=== PATIENT | female | born 1945 | race Caucasian/White ===

== ENCOUNTER → 2017-04-06 | Outpatient (CLI) | payer MEDICARE, BC | LOC: MC.RAD 15:12 | DX: Z12.31 Encounter for screening mammogram for malignant neoplasm of breast (principal) ==

== ENCOUNTER → 2018-04-28 | Outpatient (CLI) | payer MEDICARE, BC | LOC: MC.RAD 08:36 | DX: Z12.31 Encounter for screening mammogram for malignant neoplasm of breast (principal) ==

== ENCOUNTER → 2019-04-30 | Outpatient (CLI) | payer MEDICARE, BC | LOC: MC.RAD 09:59 | DX: Z12.31 Encounter for screening mammogram for malignant neoplasm of breast (principal) ==

== ENCOUNTER 2020-10-09 12:08 | Emergency (ER) | payer MEDICARE, BC ==
[~2020-10-09] VITALS: Ht 157.5 cm; Wt 64.5 kg
[2020-10-09 12:18] VITALS: TEMP 98.3
[2020-10-09] MEDS ORDERED: TYLENOL 500MG500 MG PO (12:57)
[2020-10-09] MEDS ORDERED: CALCIUM 600 MG1 EAC2 PO (12:58)
[2020-10-09] MEDS ORDERED: NORVASC2.5 MG PO (12:58)
[2020-10-09] MEDS ORDERED: VITAMIN D31000 I1 PO (12:59)
[2020-10-09] MEDS ORDERED: FLAXSEED OIL1000 MG PO (12:59)
[2020-10-09] MEDS ORDERED: ZYRTEC10MGSGL (12:59)
[2020-10-09] MEDS ORDERED: PRILOSEC 20MG20 MG PO (13:00)
[2020-10-09] MEDS ORDERED: MOBIC15 MG PO (13:00)
[2020-10-09] MEDS ORDERED: SINGULAIR 110 MG/TAB PO (13:00)
[2020-10-09] MEDS ORDERED: NATURAL POTASS595 MG (13:01)
[2020-10-09 13:11] LABS: BASO % 0.5 % (0.0-2.0); EOS # 0.2 (0.0-0.7); EOS % 3.5 % (0-4.0); GRAN # 2.7 (1.4-6.5); HEMOGLOBIN 11.9 g/dl (12.5-16.0); LYMPH # 2.1 (1.2-3.4); MEAN CELL VOLUME 102 fl (80.0-100.0); MEAN CORPUSCULAR HEMOGLOBIN 34 pg (27.0-31.0); MEAN CORPUSCULAR HGB CONC 33 g/dl (33.0-37.0); MEAN PLATELET VOLUME 9.7 fl (7.4-10.4); MONO # 0.7 (0.1-0.6); MONO % 11.5 % (1.7-9.3); PLATELET COUNT 175 K/mm3 (130-400); RED BLOOD COUNT 3.54 M/mm3 (4.10-5.30); REDCELL DISTRIBUTION WIDTH-CV 12.6 % (11.5-14.5)
[2020-10-09 13:15] LABS: HEMATOCRIT 36.1 % (37.0-47.0)
[2020-10-09 13:16] LABS: ALANINE AMINOTRANSFERASE 21 U/L (4-34); ALBUMIN 4.4 gm/dL (3.5-5.0); ALKALINE PHOSPHATASE 63 U/L (50-136); ANION GAP 9 mmol/L (7-16); AST,SGOT 27 U/L (15-37); BILIRUBIN,TOTAL 0.3 mg/dL (0.0-1.0); BLOOD UREA NITROGEN 20 mg/dL (7-17); CALCIUM 9.6 mg/dL (8.4-10.2); CARBON DIOXIDE 25 mmol/L (22-30); CHLORIDE 105 mmol/L (98-107); CREATININE, serum 0.97 (0.52-1.25); GLUCOSE 94 mg/dL (74-106); LIPASE 143 U/L (23-300); POTASSIUM 4.2 mmol/L (3.4-5.0); SODIUM 138 mmol/L (137-145); TOTAL PROTEIN 7.7 gm/dL (6.4-8.2)
[2020-10-09 13:30] LABS: TROPONIN-I < 0.012 ng/mL (0.000-0.035)
[2020-10-09 14:07] VITALS: BP 127/70; PULSE 68
== END 2020-10-09 14:12 | disposition home or self-care (01) ==
LOC: COL.ER 12:08
PROVIDERS: Nurse Practitioner Primary Care
DX: M54.6 Pain in thoracic spine (principal); M25.512 Pain in left shoulder; I10 Essential (primary) hypertension; Z90.89 Acquired absence of other organs; Z88.0 Allergy status to penicillin; Z88.1 Allergy status to other antibiotic agents; Z88.2 Allergy status to sulfonamides; Z88.8 Allergy status to other drugs, medicaments and biological substances

== ENCOUNTER 2023-04-26 13:00 | Outpatient (RCR) | payer MEDICARE, BC ==
[2023-04-26] VITALS (8 sets, daily range): BP systolic 121–135; BP diastolic 52–62; PULSE 70–80; TEMP 97.9–98.2
[~2023-04-26 13:00] MED LIST: CALCIUM 600 MG1 EAC2 PO; FLAXSEED OIL1000 MG PO; MOBIC15 MG PO; NATURAL POTASS595 MG; NORVASC2.5 MG PO; PRILOSEC 20MG20 MG PO; SINGULAIR 110 MG/TAB PO; TYLENOL 500MG500 MG PO; VITAMIN D31000 I1 PO; ZYRTEC10MGSGL
--- NOTE | 2023-04-26 16:52 | NUR ---
pt tolerated blood infusion well. iv was discontinued and pt was assisted to main lobby via wheelchair. pt free from acute concerns and complaints upon discharge and pt remained free from signs of hemolytic reaction throughout infusion.
== END 2023-04-26 17:15 | disposition home or self-care (01) ==
LOC: EUO 13:00
DX: D46.9 Myelodysplastic syndrome, unspecified (principal); D53.9 Nutritional anemia, unspecified
CPT/HCPCS: J7050; P9040

== ENCOUNTER 2023-06-29 10:00 | Outpatient (RCR) | payer MEDICARE, BC ==
[2023-06-29] VITALS (10 sets, daily range): BP systolic 131–163; BP diastolic 53–554; PULSE 66–80; TEMP 97.2–98.7
[~2023-06-29 10:00] MED LIST changes: +ARANESP0.5 MG/ML SQ; +GEMTESA75 MG PO; +MASON NATURAL2000 IU PO; +NEURONTIN100 MG/CAP PO; +PLAVIX 75MG TAB75 MG PO
== END 2023-06-29 15:23 | disposition still patient (30) ==
LOC: EUO 10:00
DX: D46.9 Myelodysplastic syndrome, unspecified (principal); D53.9 Nutritional anemia, unspecified
CPT/HCPCS: J7050; P9016

== ENCOUNTER 2023-07-27 12:44 | Outpatient (RCR) | payer MEDICARE, BC ==
[2023-07-27] VITALS (8 sets, daily range): BP systolic 108–133; BP diastolic 49–78; PULSE 64–70; TEMP 97.7–98
[~2023-07-27] VITALS: Ht 154.9 cm; Wt 63.1 kg
[2023-07-27] MEDS ORDERED: diphenhydrAMINE 25 MG CAP PO SCH (13:00)
[2023-07-27] MEDS ORDERED: NS 250 ML IV SCH (13:00)
[2023-07-27] MEDS ORDERED: Acetaminophen 325 MG TAB PO SCH (13:00)
--- NOTE | 2023-07-27 17:04 | NUR ---
pt tolerated infusion well. vs remained within normal limits and pt remained free from acute concerns and complaints. Per Dr Caldwell, the pt's peripheral IV will be left in place for the next 48 hours in order for pt to recieve chemotherapy. IV is wrapped and education provided.
== END 2023-07-27 17:10 | disposition home or self-care (01) ==
LOC: EUO 12:44
DX: D46.9 Myelodysplastic syndrome, unspecified (principal); D53.9 Nutritional anemia, unspecified
CPT/HCPCS: J7050; P9040

== ENCOUNTER 2023-08-01 13:35 | Outpatient (RCR) | payer MEDICARE, BC ==
[2023-08-16] MEDS ORDERED: LEVAQUIN 5500 MG/TA1 PO (15:52)
[2023-08-16] MEDS ORDERED: ZOVIRAX 200MG200 MG PO (15:53)
== END 2023-08-17 | disposition home or self-care (01) ==
LOC: COL.CR
DX: Z48.812 Encounter for surgical aftercare following surgery on the circulatory system (principal); Z95.5 Presence of coronary angioplasty implant and graft

== ENCOUNTER 2023-09-14 10:00 | Outpatient (RCR) | payer MEDICARE, BC ==
[2023-08-24 11:48] VITALS: BP 118/66; PULSE 62; TEMP 97.8
[2023-08-24 11:54] LABS: ALBUMIN 3.8 gm/dL (3.4-4.8); BILIRUBIN,TOTAL 0.9 mg/dL (0.2-1.2); CREATININE, serum 0.93 mg/dL (0.57-1.11)
[2023-08-24 12:58] LABS: MEAN CELL VOLUME 94 fl (80.0-100.0); MEAN CORPUSCULAR HEMOGLOBIN 31 pg (27-31); MEAN CORPUSCULAR HGB CONC 33 g/dl (33.0-37.0); MEAN PLATELET VOLUME 10.4 fl (7.4-10.4); PLATELET COUNT 67 K/mm3 (130-400); RED BLOOD COUNT 3.23 M/mm3 (4.10-5.30); REDCELL DISTRIBUTION WIDTH-CV 19.6 % (11.5-14.5)
[2023-08-24 13:22] LABS: HEMATOCRIT 30.5 % (37.0-47.0)
[2023-08-24 14:08] LABS: BAND 7 % (0-10); LYMPHOCYTE 30 % (20.0-51.0); NEUTROPHILS 59 % (42.0-75.2)
[2023-08-24 14:10] LABS: ANISOCYTOSIS 1+; OVALOCYTES 1+; PLATELET ESTIMATE DECREASED (NORMAL)
[2023-08-31 10:05] VITALS: BP 123/46; PULSE 85
[2023-08-31 10:17] LABS: HEMOGLOBIN 10.7 g/dl (12.5-16.0); MEAN CELL VOLUME 94 fl (80.0-100.0); MEAN CORPUSCULAR HEMOGLOBIN 32 pg (27-31); MEAN CORPUSCULAR HGB CONC 34 g/dl (33.0-37.0); MEAN PLATELET VOLUME 11.1 fl (7.4-10.4); PLATELET COUNT 60 K/mm3 (130-400); RED BLOOD COUNT 3.35 M/mm3 (4.10-5.30)
[2023-08-31 10:22] LABS: HEMATOCRIT 31.5 % (37.0-47.0)
[2023-08-31 10:35] LABS: ALBUMIN 3.5 gm/dL (3.4-4.8); BILIRUBIN,TOTAL 0.8 mg/dL (0.2-1.2); CALCIUM 9.5 mg/dL (8.4-10.2); CREATININE, serum 0.87 mg/dL (0.57-1.11); POTASSIUM 3.8 mmol/L (3.5-4.5); TOTAL PROTEIN 6.1 gm/dL (6.2-8.1)
[2023-08-31 11:10] LABS: EOSINOPHIL 4 % (0-4); LYMPHOCYTE 46 % (20.0-51.0); NEUTROPHILS 47 % (42.0-75.2); PLATELET ESTIMATE DECREASED (NORMAL)
[2023-08-31 11:11] LABS: ANISOCYTOSIS 2+; HYPOCHROMIA 1+; OVALOCYTES 2+
[2023-09-07 10:05] VITALS: BP 134/60; PULSE 87; TEMP 97.3
[2023-09-07 10:15] LABS: MEAN CELL VOLUME 95 fl (80.0-100.0); MEAN CORPUSCULAR HGB CONC 33 g/dl (33.0-37.0); MEAN PLATELET VOLUME 11.9 fl (7.4-10.4)
[2023-09-07 10:16] LABS: HEMATOCRIT 28.6 % (37.0-47.0); HEMOGLOBIN 9.4 g/dl (12.5-16.0); MEAN CORPUSCULAR HEMOGLOBIN 31 pg (27-31)
[2023-09-07 10:17] LABS: PLATELET COUNT 30 K/mm3 (130-400)
[2023-09-07 10:33] LABS: ALBUMIN 3.6 gm/dL (3.4-4.8); BILIRUBIN,TOTAL 0.6 mg/dL (0.2-1.2); CALCIUM 9.4 mg/dL (8.4-10.2); CREATININE, serum 0.85 mg/dL (0.57-1.11); POTASSIUM 3.8 mmol/L (3.5-4.5); TOTAL PROTEIN 6.3 gm/dL (6.2-8.1)
[2023-09-07 11:07] LABS: BAND 2 % (0-10); LYMPHOCYTE 52 % (20.0-51.0); NEUTROPHILS 38 % (42.0-75.2); NUCLEATED RED BLOOD CELL 1 (0-6); PLATELET ESTIMATE DECREASED (NORMAL)
[~2023-09-14] VITALS: Ht 154.9 cm; Wt 61.4 kg
[~2023-09-14 10:00] MED LIST changes: -CALCIUM 600 MG1 EAC2 PO; +CALCIUM 600600 MG PO; +LEVAQUIN 5500 MG/TA1 PO; -NATURAL POTASS595 MG; +NATURAL POTASS595 MG PO; +NS Flush 10 ML SYRINGE (Power PICC Line - 10 mL PRN) ICA; +NS Flush 10 ML SYRINGE (Power PICC Line - 10 mL Q12hr) ICA SCH; +ZOVIRAX 200MG200 MG PO
[2023-09-14 10:26] LABS: MEAN CELL VOLUME 97 fl (80.0-100.0); MEAN CORPUSCULAR HGB CONC 33 g/dl (33.0-37.0); MEAN PLATELET VOLUME 10.6 fl (7.4-10.4); PLATELET COUNT 131 K/mm3 (130-400); RED BLOOD COUNT 2.81 M/mm3 (4.10-5.30); REDCELL DISTRIBUTION WIDTH-CV 20.9 % (11.5-14.5)
[2023-09-14 10:28] VITALS: BP 116/49; PULSE 85; TEMP 98
[2023-09-14 10:41] LABS: ALBUMIN 3.5 gm/dL (3.4-4.8); BILIRUBIN,TOTAL 0.7 mg/dL (0.2-1.2); CALCIUM 9.3 mg/dL (8.4-10.2); CREATININE, serum 0.97 mg/dL (0.57-1.11); POTASSIUM 3.8 mmol/L (3.5-4.5)
[2023-09-14 10:55] LABS: HEMATOCRIT 27.2 % (37.0-47.0); HEMOGLOBIN 8.9 g/dl (12.5-16.0); MEAN CORPUSCULAR HEMOGLOBIN 32 pg (27-31)
[2023-09-14 11:09] LABS: BAND 6 % (0-10); BASOPHIL 2 % (0-2); EOSINOPHIL 13 % (0-4); LYMPHOCYTE 35 % (20.0-51.0); MYELOCYTE 1 % (0-0); NEUTROPHILS 32 % (42.0-75.2); NUCLEATED RED BLOOD CELL 1 (0-6); OVALOCYTES 1+; PLATELET ESTIMATE NORMAL (NORMAL); TEAR DROP CELLS 1+
[2023-10-09] MEDS ORDERED: CIPRO 500MG TA500 MG PO (11:23)
[2023-10-09] MEDS ORDERED: FLAGYL500 MG PO (11:23)
[2023-10-09] MEDS ORDERED: PLAVIX 75MG TAB75 MG PO (11:25)
== END 2023-09-14 15:56 | disposition home or self-care (01) ==
LOC: EUO 10:00
PROVIDERS: Internal Medicine
DX: D46.9 Myelodysplastic syndrome, unspecified (principal)

== ENCOUNTER 2023-10-05 08:00 | Outpatient (RCR) | payer MEDICARE, BC ==
[2023-09-21 10:20] VITALS: BP 118/54; PULSE 62; TEMP 98
[2023-09-21 10:52] LABS: MEAN CELL VOLUME 101 fl (80.0-100.0); MEAN CORPUSCULAR HGB CONC 32 g/dl (33.0-37.0); MEAN PLATELET VOLUME 9.3 fl (7.4-10.4); PLATELET COUNT 148 K/mm3 (130-400); RED BLOOD COUNT 2.59 M/mm3 (4.10-5.30); REDCELL DISTRIBUTION WIDTH-CV 22.1 % (11.5-14.5)
[2023-09-21 11:02] LABS: HEMATOCRIT 26.1 % (37.0-47.0); HEMOGLOBIN 8.4 g/dl (12.5-16.0); MEAN CORPUSCULAR HEMOGLOBIN 32 pg (27-31)
[2023-09-21 11:48] LABS: BAND 3 % (0-10); LYMPHOCYTE 18 % (20.0-51.0); METAMYELOCYTE 1 % (0-0); NEUTROPHILS 73 % (42.0-75.2)
[2023-09-21 11:49] LABS: OVALOCYTES 1+; PLATELET ESTIMATE NORMAL (NORMAL); TEAR DROP CELLS 1+
[2023-09-28 10:12] VITALS: BP 133/58; PULSE 80
--- NOTE | 2023-09-28 10:20 | NUR ---
Patient reported to this nurse she had "chest heaviness" this morning. Per pt she called her physician to report symptoms this am prior to arrival. Patient denies chest pain or pressure at this time to this nurse.Emergency Room offered to patient for evaluation, patient refused.Patient stated "I really think it is because my blood is low." Patient requested call when lab results returned.Patient discharged via wheelchair with .
[2023-09-28 10:46] LABS: ALBUMIN 3.8 gm/dL (3.4-4.8); CALCIUM 9.4 mg/dL (8.4-10.2); CREATININE, serum 0.9 mg/dL (0.57-1.11); POTASSIUM 3.8 mmol/L (3.5-4.5); TOTAL PROTEIN 6.1 gm/dL (6.2-8.1)
[2023-09-28 10:47] LABS: MEAN CELL VOLUME 101 fl (80.0-100.0); MEAN CORPUSCULAR HGB CONC 32 g/dl (33.0-37.0); MEAN PLATELET VOLUME 11.9 fl (7.4-10.4); PLATELET COUNT 70 K/mm3 (130-400); RED BLOOD COUNT 2.93 M/mm3 (4.10-5.30); REDCELL DISTRIBUTION WIDTH-CV 22.6 % (11.5-14.5)
[2023-09-28 10:48] LABS: HEMATOCRIT 29.7 % (37.0-47.0); HEMOGLOBIN 9.5 g/dl (12.5-16.0); MEAN CORPUSCULAR HEMOGLOBIN 32 pg (27-31)
[2023-09-28 11:05] LABS: EOSINOPHIL 5 % (0-4); LYMPHOCYTE 39 % (20.0-51.0); NEUTROPHILS 52 % (42.0-75.2)
[2023-09-28 11:06] LABS: ANISOCYTOSIS 3+; HYPOCHROMIA 1+; PLATELET ESTIMATE DECREASED (NORMAL)
[~2023-10-05] VITALS: Ht 154.9 cm; Wt 60.8 kg
[~2023-10-05 08:00] MED LIST changes: +NS Flush 10 ML SYRINGE (PICC Line - 10 mL Daily if not in use) ICA SCH; +NS Flush 10 ML SYRINGE (PICC Line - 10 mL PRN) ICA; -NS Flush 10 ML SYRINGE (Power PICC Line - 10 mL PRN) ICA; -NS Flush 10 ML SYRINGE (Power PICC Line - 10 mL Q12hr) ICA SCH
[2023-10-05 08:37] VITALS: BP 126/84; PULSE 85; TEMP 97.7
[2023-10-05 08:40] LABS: HEMATOCRIT 27.5 % (37.0-47.0); HEMOGLOBIN 8.7 g/dl (12.5-16.0); MEAN CELL VOLUME 103 fl (80.0-100.0); MEAN CORPUSCULAR HEMOGLOBIN 33 pg (27-31); MEAN CORPUSCULAR HGB CONC 32 g/dl (33.0-37.0); MEAN PLATELET VOLUME 11.2 fl (7.4-10.4); RED BLOOD COUNT 2.66 M/mm3 (4.10-5.30); REDCELL DISTRIBUTION WIDTH-CV 22.6 % (11.5-14.5)
[2023-10-05 08:43] LABS: PLATELET COUNT 34 K/mm3 (130-400)
[2023-10-05 08:55] LABS: ALBUMIN 3.7 gm/dL (3.4-4.8); BILIRUBIN,TOTAL 0.6 mg/dL (0.2-1.2); CALCIUM 9.3 mg/dL (8.4-10.2); CREATININE, serum 0.87 mg/dL (0.57-1.11); POTASSIUM 3.6 mmol/L (3.5-4.5)
[2023-10-05 09:28] LABS: EOSINOPHIL 2 % (0-4); LYMPHOCYTE 35 % (20.0-51.0); TEAR DROP CELLS 1+
[2023-10-05 09:29] LABS: ANISOCYTOSIS 3+; HYPOCHROMIA 2+; PLATELET ESTIMATE DECREASED (NORMAL); SCHISTOCYTES 1+
[2023-10-09] MEDS ORDERED: FLAGYL500 MG PO (11:23)
[2023-10-09] MEDS ORDERED: CIPRO 500MG TA500 MG PO (11:23)
[2023-10-09] MEDS ORDERED: PLAVIX 75MG TAB75 MG PO (11:25)
[2023-10-10 08:13] LABS: NEUTROPHILS 56 % (42.0-75.2)
[2023-10-10 08:14] LABS: METAMYELOCYTE 0 % (0-0)
[2023-10-10 08:16] LABS: PATHOLOGY DIFF REVIEW OK +
== END 2023-10-05 12:22 | disposition home or self-care (01) ==
LOC: EUO 08:00
PROVIDERS: Internal Medicine
DX: D46.9 Myelodysplastic syndrome, unspecified (principal)

== ENCOUNTER 2023-10-06 10:21 | Day surgery (SDC) | payer MEDICARE, BC ==
[~2023-10-06] VITALS: Ht 156.2 cm; Wt 60.5 kg
[~2023-10-06 10:21] MED LIST changes: +LR 1,000 ML IV SCH; -NS Flush 10 ML SYRINGE (PICC Line - 10 mL Daily if not in use) ICA SCH; -NS Flush 10 ML SYRINGE (PICC Line - 10 mL PRN) ICA
[2023-10-06 10:46] VITALS: BP 128/51; PULSE 73; TEMP 97.7
--- NOTE | 2023-10-06 11:04 | NUR ---
The patient ambulated back to [facility] independently using a steady gait and appeared to tolerate the activity well. Vital signs obtained. Consent signed. PICC line to right upper arm without redness or edema and flushes easily with good blood return. LR infusing without difficulty. Assessment completed. Home medictions reconcilled. brought back to be at her bedside. Warm blankets provided. Call light is within reach. Denies any further needs at this time.
[2023-10-06] MEDS ORDERED: fentaNYL 50 MCG/ML 2 ML VIAL ONE (11:41)
[2023-10-06] MEDS ORDERED: Glycopyrrolate 0.2 MG/ML 1 ML VIAL ONE (11:42)
[2023-10-06] MEDS ORDERED: Lidocaine PF 2% (20 MG/ML) 5 ML VIAL ONE (11:42)
[2023-10-06] MEDS ORDERED: Ondansetron 4 MG/2 ML VIAL ONE (11:42)
[2023-10-06] MEDS ORDERED: Phenylephrine 10 MG/ML VIAL ONE (11:42)
[2023-10-06] MEDS ORDERED: NS 20 ML IV ONE (11:42)
[2023-10-06] MEDS ORDERED: Topical Skin Adhesive 1 EACH (1 ML) TOP ONE (13:00)
[2023-10-06 13:35] VITALS: BP 98/48; PULSE 70; TEMP 97.3
[2023-10-06] MEDS ORDERED: Morphine 4 MG/ML VIAL IV PRN (13:45)
[2023-10-06] MEDS ORDERED: Ondansetron 4 MG/2 ML VIAL IV PRN (13:45)
[2023-10-06 13:50] VITALS: BP 116/56; PULSE 84
[2023-10-06 14:05] VITALS: BP 121/45; PULSE 74
[2023-10-06 14:20] VITALS: BP 111/70; PULSE 70
[2023-10-06 14:35] VITALS: BP 98/85; PULSE 72
--- NOTE | 2023-10-06 14:50 | NUR ---
1335 RETURNS TO ROOM 6 FROM OR PER CART. DROWSY, AROUSES SPONTANEOUSLY. RESP UNLABORED. HOB ELEVATED 40 DEGREES. INCISIONS RIGHT UPPER CHEST AND RIGHT NECK INTACT. WITHOUT REDNESS OR EDEMA. AREAS SOFT WITH GENTLE PALPATION. VITAL SIGNS OBTAINED. CALL LIGHT AT SIDE. IN ROOM 1350 HOB ELEVATED 70 DEGREES. TOLERATES PO WATER AND ICE CREAM WITHOUT NAUSEA 1410 PICC LINE RIGHT UPPER ARM DC'D BY IV SERVICES 1425 DISCHARGE INSTRUCTIONS REVIEWED. PATIENT VERBALIZES UNDERSTANDING. COPY PROVIDED IN DISCHARGE FOLDER 1440 HOB ELEVATED 50 DEGREES. DRESSING RIGHT UPPER ARM CLEAN DRY AND INTACT 1445 PATIENT SITS ON EDGE, DRESSES SELF
[2023-10-09] MEDS ORDERED: CIPRO 500MG TA500 MG PO (11:23)
[2023-10-09] MEDS ORDERED: FLAGYL500 MG PO (11:23)
[2023-10-09] MEDS ORDERED: PLAVIX 75MG TAB75 MG PO (11:25)
== END 2023-10-06 14:55 | disposition home or self-care (01) ==
LOC: SDCO 10:21
DX: D46.9 Myelodysplastic syndrome, unspecified (principal); D69.6 Thrombocytopenia, unspecified; I25.2 Old myocardial infarction; Z79.02 Long term (current) use of antithrombotics/antiplatelets; Z95.5 Presence of coronary angioplasty implant and graft
CPT/HCPCS: C1788; J0690; J1644; J2371; J2405; J2704; J3010; J7120

== ENCOUNTER 2023-10-07 19:30 | Emergency (ER) | payer MEDICARE, BC ==
[~2023-10-07] VITALS: Ht 154.9 cm; Wt 59.1 kg
[~2023-10-07 19:30] MED LIST changes: -LR 1,000 ML IV SCH
[2023-10-07 19:48] VITALS: TEMP 97.3
[2023-10-07 20:44] LABS: MEAN CELL VOLUME 106 fl (80.0-100.0); MEAN CORPUSCULAR HGB CONC 32 g/dl (33.0-37.0); MEAN PLATELET VOLUME 11.1 fl (7.4-10.4); PLATELET COUNT 55 K/mm3 (130-400); RED BLOOD COUNT 2.75 M/mm3 (4.10-5.30); REDCELL DISTRIBUTION WIDTH-CV 23.3 % (11.5-14.5)
[2023-10-07 20:47] LABS: HEMOGLOBIN 9.2 g/dl (12.5-16.0); MEAN CORPUSCULAR HEMOGLOBIN 33 pg (27-31)
[2023-10-07 20:56] LABS: INR 1.2 (0.8-3.0); PROTHROMBIN TIME 13.1 SECONDS (9.7-12.8)
[2023-10-07 21:00] LABS: ALBUMIN 3.8 gm/dL (3.4-4.8); BILIRUBIN,TOTAL 0.5 mg/dL (0.2-1.2); C-REACTIVE PROTEIN 0.93 mg/dL (0.00-0.50); CALCIUM 9.4 mg/dL (8.4-10.2); CREATININE, serum 0.88 mg/dL (0.57-1.11); POTASSIUM 3.6 mmol/L (3.5-4.5); TOTAL PROTEIN 6.3 gm/dL (6.2-8.1)
[2023-10-07 22:12] LABS: BAND 9 % (0-10); EOSINOPHIL 3 % (0-4); LYMPHOCYTE 32 % (20.0-51.0); NEUTROPHILS 53 % (42.0-75.2); PLATELET ESTIMATE DECREASED (NORMAL)
[2023-10-07 22:58] LABS: URINE APPEARANCE CLEAR (CLEAR/HAZY); URINE BLOOD NEGATIVE (NEGATIVE); URINE COLOR YELLOW (YELLOW); URINE GLUCOSE NEGATIVE (NEGATIVE); URINE KETONE NEGATIVE (NEGATIVE); URINE NITRATE NEGATIVE (NEGATIVE); URINE PROTEIN(semi-quant) NEGATIVE (NEGATIVE); URINE UROBILINOGEN 0.2 E.U/dL (0.2-1.0)
[2023-10-07] MEDS ORDERED: Home HYDROcodone/Acetaminophen 5/325 MG #4 TABS/PACK PO ONE (23:00)
[2023-10-07 23:07] VITALS: BP 125/70; PULSE 85
[2023-10-07 23:34] LABS: COLLECTION METHOD CLEAN CATCH
[2023-10-09] MEDS ORDERED: FLAGYL500 MG PO (11:23)
[2023-10-09] MEDS ORDERED: CIPRO 500MG TA500 MG PO (11:23)
[2023-10-09] MEDS ORDERED: PLAVIX 75MG TAB75 MG PO (11:25)
== END 2023-10-07 23:07 | disposition home or self-care (01) ==
LOC: COL.ER 19:30
PROVIDERS: Nurse Practitioner
DX: K92.1 Melena (principal); K64.4 Residual hemorrhoidal skin tags; Z86.2 Personal history of diseases of the blood and blood-forming organs and certain disorders involving the immune mechanism; Z79.02 Long term (current) use of antithrombotics/antiplatelets